=== PATIENT | female | born 1940 | race Two or more races ===

== ENCOUNTER 2021-05-20 04:41 | Inpatient (IN) | payer OTHER ==
[~2021-05-20] VITALS: Ht 154.9 cm; Wt 68.0 kg
[2021-05-20] MEDS ORDERED: IRBESARTAN-HCT1 EACH (05:19)
[2021-05-20] MEDS ORDERED: GLIPIZIDE XL10 MG (05:20)
[2021-05-20] MEDS ORDERED: [UNRECOGNIZED DRUG - OTHER] (05:22)
[2021-05-20] MEDS ORDERED: FERROUS (05:23)
[2021-05-20] MEDS ORDERED: SIMVASTATIN 40 MG (05:24)
[2021-05-20] MEDS ORDERED: LEVO-T50 MCG (05:25)
[2021-05-20] MEDS ORDERED: AMLODIPINE 5 MG. (05:25)
--- NOTE | 2021-05-20 05:26 | NUR ---
PTE SE RECIBE POR ABDOMINAL PAIN REFIERE PARAMEDICO Y FAMILIAR.
--- NOTE | 2021-05-20 05:29 | NUR ---
PACIENTE ALERTA Y ORIENTADA POR MARIA VICTORIA. SE ORIENTA DE TRATAMIENTO GUCCI ORDEN MEDICA POR MIS MUNOZ RN. PACIENTE REFIERE ENTENDER. ESTA CANALIZA, THOMAS MUESTRAS Y ADMINISTRA MEDICAMENTOS CON MEDIDAS ASEPTICAS CORRESPONDIENTES. ESTA NOTIFICA CT. EN ESPERA DE RESULTADOS PARA RE EVALUACION MEDICA.
--- NOTE | 2021-05-20 07:51 | NUR ---
SE RECIBE PTE DEL TURNO ANTERIOR EN EL AREA DE OBSERVACION EN EL CUBICULO #9 EN RENATO CON BARANDAS ELEVADA Y TIMBRE ACCEISBLE PTE NO PRESENTA DOLOR AL MOMENTO PTE EN ESPERA DE RESULTADO.SE OBSERVA VENOPUNCION PATENTE Y SHIVA DE EDEMA PTE SE MANTIENE EN OBSERVACION Y BAJO TRATAMIENTO.
--- NOTE | 2021-05-20 10:36 | NUR ---
DR. ANNE SANDERS ORDENA COLOCAR FOLLEY CATHETER. MS. ALBRIGHT ORIENTA A PTE SOBRE COLOCAR FOLLEY CATHETER CON MEDIDAS ESTERILES. SE OBSERVA QUE PTE ORINA 1300 ML.
== END 2021-05-28 15:18 | disposition home or self-care (01) | DRG 690 ==
LOC: ER 04:41 → MEDI 11:57
PROVIDERS: ADMIT Internal Medicine; ATTEND Internal Medicine
PROC: BW21ZZZ Computerized Tomography (CT Scan) of Abdomen and Pelvis (ICD-10-PCS; 2021-05-20)
PROC: BW40ZZZ Ultrasonography of Abdomen (ICD-10-PCS; 2021-05-20)
PROC: BW30YZZ Magnetic Resonance Imaging (MRI) of Abdomen using Other Contrast (ICD-10-PCS; 2021-05-24)
PROC: 0FB13ZX Excision of Right Lobe Liver, Percutaneous Approach, Diagnostic (ICD-10-PCS; principal; 2021-05-27)
DX: N39.0 Urinary tract infection, site not specified (principal); E87.1 Hypo-osmolality and hyponatremia; C22.0 Liver cell carcinoma; D64.9 Anemia, unspecified; D69.6 Thrombocytopenia, unspecified; R16.0 Hepatomegaly, not elsewhere classified; R33.9 Retention of urine, unspecified; E87.6 Hypokalemia; R53.81 Other malaise; M54.9 Dorsalgia, unspecified; E03.9 Hypothyroidism, unspecified; I10 Essential (primary) hypertension; E11.9 Type 2 diabetes mellitus without complications; E78.5 Hyperlipidemia, unspecified; Z90.49 Acquired absence of other specified parts of digestive tract
CPT/HCPCS: 74182